=== PATIENT | male | born 1955 | race Caucasian/White ===

== ENCOUNTER → 2021-12-19 13:44 | Outpatient (BNVA) | payer OTHER, SELFPAY | PROVIDERS: Referring Provider Emergency Medicine Emergency Medical Services; Visit Provider Urology | DX: N40.1 Benign prostatic hyperplasia with lower urinary tract symptoms (principal); R35.89 Other polyuria | CPT/HCPCS: 51798; 99203 ==

== ENCOUNTER → 2022-01-11 10:13 | Outpatient (BNVA) | payer OTHER, SELFPAY | PROVIDERS: Visit Provider Urology | DX: N40.1 Benign prostatic hyperplasia with lower urinary tract symptoms (principal); R39.198 Other difficulties with micturition; N39.41 Urge incontinence | CPT/HCPCS: 51798; 52281; 81003; 99214 ==

== ENCOUNTER → 2022-01-30 14:43 | Outpatient (BNVA) | payer OTHER, SELFPAY | PROVIDERS: PCP Nurse Practitioner; Visit Provider Urology | DX: R39.198 Other difficulties with micturition (principal); R33.9 Retention of urine, unspecified | CPT/HCPCS: 51798; 81003; 99213 ==

== ENCOUNTER 2022-03-18 10:34 | Emergency (ER) | payer OTHER, SELFPAY ==
[2022-03-18 10:57] VITALS: BP 122/81; PULSE 96; RESP 14; TEMP 36.9; O2SAT 97; BMI 25.4
--- NOTE | 2022-03-18 11:16 | US_ITS ---
WS: [id number] SCROTAL ULTRASOUND EXAMINATION CLINICAL INFORMATION: pain/swelling COMPARISON: None. FINDINGS: TESTES Normal in size and echotexture, without focal lesion. Septated RIGHT hydrocele moderate in size. Color Doppler: Increased vascularity RIGHT testicle. Normal vascularity LEFT testicle. Right testes size: 5.6 cm x 3.1 cm x 3.4 cm. Left testes size: 5.2 cm x 3.3 cm x 1.9 cm. EPIDIDYMIDES Slightly prominent RIGHT epididymis. Color Doppler: Normal color Doppler flow pattern. Right epididymis size: 0.9 cm x 0.9 cm x 2.1 cm. Left epididymitis size: 1.1 cm x 0.7 cm x 1.3 cm. HYDROCELE Moderate RIGHT septated hydrocele VARICOCELE None. OTHER FINDINGS None. US/US scrotum [id number] IMPRESSION: 1. Moderate right-sided hydrocele. 2. Hyperemic RIGHT testicle compatible with orchitis. Slightly prominent RIGHT epididymis suspicious for epididymitis. 3. No other suspicious findings.
--- NOTE | 2022-03-18 13:13 | W.ED.MALEGU ---
HPI - Male Genitourinary General: Chief complaint: Urogenital-Male Stated complaint: testicular pain/ultrasound sent Time Seen by Provider: 03/18/22 13:12 Source: patient Mode of arrival: ambulatory Limitations: no limitations History of Present Illness: Patient is a nice 66-year-old male who presents to ED today with complaints of a right swollen testicle. Patient states approximately 3 weeks ago while sitting on a barstool he crossed his legs and immediately felt pain to his right testicle. He states he has had swelling and discomfort since. He reportedly was seen at the [facility] and referred to the ED for further evaluation. Patient has a history of BPH, neurogenic bladder, urethral stricture. He does daily self catheterizations. Patient has followed up with Dr. Strong in regards to these issues. Patient denies penile discharge, rashes, lesions. He is not sexually active and has not been in over 20 years. Patient denies fevers. MD Complaint: testicle pain and testicle swelling Duration: constant Location: right testicle Severity: moderate Quality: aching Relieving factors: none Exacerbating factors: none Associated symptoms: Reports no associated symptoms; Deny hematuria, nausea or vomiting Related Data: Sexually active: No Review of Systems Const: Denies: fever(s), chills, body aches, fatigue or malaise Card: Denies: chest pain Resp: Denies: dyspnea GI: Denies: abdominal pain, nausea, vomiting or change in bowel habits : Reports: testicular pain, scrotal swelling and other (chronic urinary retention requiring self catheterization); Denies: flank pain, hematuria, genital lesions or penile discharge Musc: Denies: back pain PFSH ED PFSH: Family History Father , IN HIS 80'S No problems noted. Mother , IN HER 80'S No problems noted. Social History Smoking and tobacco status: never smoked Alcohol intake: current Alcohol intake frequency: 0-2 Drinks per Day Marital status: Current occupational status: disabled History of recent travel: No Physical Exam Const: COMMON NORMALS: no acute distress, average body habitus, no limitations, healthy appearing, alert and well nourished Resp: COMMON NORMALS: normal respiratory effort and clear to auscultation bilaterally AUSCULTATION: clear to auscultation bilaterally Cardio: COMMON NORMALS: regular rate and regular rhythm RATE: regular rate RHYTHM: regular rhythm GI: COMMON NORMALS: Normal to inspection, nondistended, normoactive bowel sounds present, Soft to palpation and non-tender PALPATION: Yes Soft to palpation : COMMON NORMALS: Yes no CVA tenderness BLADDER/KIDNEY EXAM: Yes no CVA tenderness PENIS: normal penis MEATUS: meatus normal SCROTUM: Yes testes descended bilaterally, Yes Scrotal tenderness present, Yes erythematous, Yes edematous Scrotal edema laterality: right, Yes scrotal swelling Scrotal swelling laterality: right Scrotal swelling consistent with: hydrocele and No Scrotal lesions present TESTES: Yes testicular lie normal, Yes testicular swelling Testicular swelling laterality: right and No epididymal tenderness Back/Pelvis: COMMON NORMALS: no CVA tenderness Extremity: COMMON NORMALS: normal to inspection GENERAL: Yes normal exam except as noted Neuro: COMMON NORMALS: moves all extremities, no focal motor deficits, no sensory deficits noted and gait normal SENSORIUM/ORIENTATION: Yes alert Skin: COMMON NORMALS: no rashes or lesions noted GENERAL SKIN EXAM: no rashes or lesions noted Course Vital Signs: Vital signs: Vital Signs Temperature 98.5 F 03/18/22 10:57 Pulse Rate 96 03/18/22 10:57 Respiratory Rate 14 03/18/22 10:57 Blood Pressure 122/81 03/18/22 10:57 Pulse Oximetry 97 03/18/22 10:57 Oxygen Delivery Me thod 03/18/22 10:57 MDM - Male Medical Decision Making Ultrasound showing a right epididymo-orchitis most likely reactive hydrocele. I would say given his history of trauma this is less likely infectious however symptoms have been present for 3 weeks and he certainly has risk factors given his obstructive uropathy/self catheterizations. I think it is reasonable to place him on Levaquin and have him ice/elevate/support scrotum and have him follow up with urology. Labs originally ordered but patient does not want to stay for results. He would like to leave so will be allowed to do so. Lab Data 03/18/22 13:57 03/18/22 13:57 Radiology Impressions Scrotum Ultrasound 03/18/22 11:16 IMPRESSION: 1. Moderate right-sided hydrocele. 2. Hyperemic RIGHT testicle compatible with orchitis. Slightly prominent RIGHT epididymis suspicious for epididymitis. 3. No other suspicious findings. Discharge Plan Discharge Patient Disposition: Home Clinical Impression: Orchitis of right testicle, Right epididymitis, Right hydrocele Condition: Stable Prescriptions: New levofloxacin 500 mg tablet 500 mg PO DAILY 10 Days Qty: 10 0RF No Action ibuprofen 200 mg capsule 200 mg PO Q6H PRN oxycodone-acetaminophen 5-325 mg tablet 1 tab PO Q8H PRN tamsulosin 0.4 mg capsule 0.8 mg PO DAILY Qty: 180 3RF Discharge Orders: Discharge ED (Routine); Ordered 03/18/22 Ordered By: Amanda Christina Referrals: Valerie Reyes, [employer]PERATOR[facility] [Primary Care Provider] - Patient Instructions: Epididymo-Orchitis (ED), Hydrocele (ED), Orchitis (ED) Activity Restrictions/Additional Instructions: Start your antibiotics and begin them immediately. As we discussed you need to elevate the scrotum and ice for 15 to 20 minutes every other hour (do not apply ice directly to the skin). You also need to begin wearing supportive underwear/briefs. Case management will try to get you an appointment for follow-up with Dr. Strong. You need to return to the ED for worsening scrotal/testicular pain or swelling, fevers, flank pain, inability to hold down your antibiotics, or any other concerns you may have. I hope you begin to feel better soon. Coding Level of Care Code ED [employer]gr[employer]ist for Alecia Chan Exam Comprehensive
[2022-03-18 14:13] LABS: Basophils % 0.4 %; Eosinophils # 0.2 10^3/uL (0.0-0.8); Eosinophils % 2.1 %; Hematocrit 45.6 % (42.0-52.0); Hemoglobin 15.2 g/dL (11.7-16.6); Lymphocytes # 2.5 10^3/uL (0.8-4.8); Lymphocytes % 32.5 %; Mean Corpuscular HGB Conc 33.3 g/dL (30.0-36.0); Mean Corpuscular Hemoglobin 30.8 pg (28.0-34.0); Mean Corpuscular Volume 92.3 fl (80-94); Mean Platelet Volume 9.4 fL (7.4-10.4); Monocytes # 0.6 10^3/uL (0.2-0.9); Monocytes % 7.9 %; Neutrophils # 4.33 10^3/uL (1.8-7.7); Neutrophils % 56.8 %; Nucleated Red Blood Cells % 0 %; Platelet Count 571 10^3/cmm (130-400); Red Blood Count 4.94 10^6/uL (4.1-5.3); Red Cell Distribution Width 13.5 % (12.1-15.1); White Blood Count 7.6 10^3/uL (4.0-10.0)
[2022-03-18 14:32] LABS: Anion Gap 11.1 (5-19); Blood Urea Nitrogen 19 mg/dL (8-23); Calcium 10.6 mg/dL (8.5-10.5); Carbon Dioxide 30 mmol/L (22-29); Chloride 95 mmol/L (98-107); Glomerular Filtration Rate 74.5 mL/min (90-130); Glucose 99 mg/dL (65-115); Osmolality Calculated 276 mOsm/kg (285-295); Potassium 4.1 mmol/L (3.5-5.1); Sodium 132 mmol/L (136-145)
--- NOTE | 2022-03-18 14:34 | DCPLANNER ---
Addendum entered by Whitney Babcock 06/28/22 14:04: Patient had a follow up appointment scheduled with urology - patient did attend appointment Addendum entered by Whitney Babcock 03/21/22 13:24: Patient has a follow up appointment scheduled for , June 20, [address] at 8:[address] Strong at urology. Clinic will call patient with appointment information. Original Note: nursing services manager had message to schedule a follow up appointment for patient with urology. nursing services manager sent patients information to the front office staff at urology. Patients information will be printed and reviewed. Clinic will call patient with appointment information.
== END 2022-03-18 14:14 | disposition home or self-care (01) ==
PROVIDERS: Emergency Provider Physician Assistant; PCP Nurse Practitioner
DX: N45.3 Epididymo-orchitis (principal); N43.3 Hydrocele, unspecified
CPT/HCPCS: 36415; 76870; 80048; 85025; 99284

== ENCOUNTER → 2022-04-09 13:52 | Outpatient (BNVA) | payer OTHER, SELFPAY | PROVIDERS: PCP Nurse Practitioner; Visit Provider Urology | DX: N45.1 Epididymitis (principal); N40.1 Benign prostatic hyperplasia with lower urinary tract symptoms; R33.9 Retention of urine, unspecified; R39.198 Other difficulties with micturition | CPT/HCPCS: 51798; 81003; 99213 ==

== ENCOUNTER → 2022-06-20 08:00 | Outpatient (BNVA) | payer OTHER, SELFPAY | PROVIDERS: PCP Nurse Practitioner; Visit Provider Urology | DX: R33.9 Retention of urine, unspecified (principal); R39.198 Other difficulties with micturition; N99.114 Postprocedural urethral stricture, male, unspecified; N40.1 Benign prostatic hyperplasia with lower urinary tract symptoms | CPT/HCPCS: 51741; 51798; 81003; 99213 ==